=== PATIENT | male | born 1950 | race Caucasian/White ===

== ENCOUNTER 2016-12-14 13:45 | Inpatient (IN) | payer BC ==
[~2016-12-14] VITALS: Ht 180.3 cm; Wt 84.1 kg
[~2016-12-14 13:45] MED LIST: ADDERALL10 MG PO; ADVAIR HFA120 INHALA IH; ASPIR 8181 M1 PO; ASPIRIN EC325 MG PO; AUGMENTIN875 MG PO; BACTRIM,SEPT1 TABLE1 PO; CHLORDIAZEPOXID25 MG PO; CIPRO500 MG PO; COLACE100 MG PO; DIAZEPAM10 MG PO; DICYCLOMINE HCL10 MG PO; DILAUDID2 MG PO; ENDOCET 5-3251 EACH PO; FLAGYL500 MG PO; FLOMAX0.4 MG PO; FOLIC ACID1 MG PO; IBUPROFEN400 MG PO; IBUPROFEN800 MG PO; KEFLEX500 MG PO; LIBRIUM25 MG PO; LIPITOR40 MG PO; LOPRESSOR50 MG PO; Librium PO; Lopressor PO; METHYLPHENIDATE27 MG PO; METOPROLOL TART25 MG PO; METRONIDAZOLE500 MG PO; MIRALAX17 GM PO; MOTRIN600 MG PO; NICOTINE PATCH1 EACH TD; NO HOME MED; OMEPRAZOLE40 M1 PO; OXYCODONE HCL10 MG PO; PANTOPRAZOLE SO40 MG PO; PERCOCET 5/31 TABLET PO; PRAVASTATIN SOD80 MG PO; PRILOSEC40 MG PO; ROXICODONE5 MG PO; SERTRALINE HCL50 MG PO; TAB-A-VITE WIT1 EACH PO; TAB-A-VITE1 EACH PO; TAMSULOSIN HCL0.4 MG PO; THIAMINE HCL100 MG PO; ULTRAM50 MG PO; VENTOLIN HFA18 GM IH; VIAGRA100 MG PO; VIAGRA50 MG PO; ZOFRAN ODT4 MG PO; ZOFRAN4 MG PO; Zoloft PO
[2016-12-14 14:16] LABS: EOSINOPHIL (%) 0.3 % (0-5); HEMATOCRIT 43.8 % (38.0-50.0); IMMATURE GRANULOCYTE (%) 0.6 % (0.0-0.7); INSTRUMENT ABS NEUTROPHIL CT 2.2 K/uL; LYMPHOCYTE COUNT 0.7 K/uL (1.0-2.8); MCHC 34.7 G/DL (30.0-36.0); MCV 95.2 FL (86-99); MEAN PLAT.VOLUME 8.4 uM^3 (9.0-12.4); MONOCYTE (%) 9.9 % (3-12); MONOCYTE COUNT 0.3 K/uL (0-0.8); NEUTROPHIL (%) 66.6 % (45-76); NEUTROPHIL COUNT 2.2 K/uL (1.8-6.4); PLATELET COUNT 87 K/uL (156-360); RBC DIS.WIDTH-CV 14.8 % (11.8-14.6); RBC DIS.WIDTH-SD 51.6 % (39-53); WHITE BLOOD COUNT 3.3 K/uL (4.1-10.2)
[2016-12-14 14:26] LABS: CHLORIDE 100 mEq/L (99-109); POTASSIUM 4.1 mEq/L (3.7-5.4); SODIUM 143 mEq/L (136-147)
[2016-12-14 14:27] LABS: MAGNESIUM 2.2 mg/dL (1.3-2.7)
[2016-12-14 14:29] LABS: GLUCOSE 82 mg/dL (70-99)
[2016-12-14 14:31] LABS: TOTAL BILIRUBIN 1.5 mg/dL (0.0-1.0)
[2016-12-14 14:32] LABS: ALKALINE PHOSPHATASE 93 IU/L (3-129)
[2016-12-14 14:33] LABS: GFR ESTIMATE (CALCULATED) > 59 mL/min/
[2016-12-14 14:34] LABS: UREA NITROGEN (BUN) 13 mg/dL (9-23)
[2016-12-14 14:38] LABS: TROP-I INTERPRETATION NEGATIVE; TROPONIN-I < 0.01 ng/mL (0.0-0.30)
[2016-12-14 14:44] LABS: ANION GAP 29 MEQ/L (2-14)
[2016-12-14] MEDS ORDERED: LO-DOSE ASPIRIN81 M2 PO (16:32)
[2016-12-14 18:40] LABS: CHLORIDE 100 mEq/L (99-109); SODIUM 142 mEq/L (136-147)
[2016-12-14 18:41] LABS: GLUCOSE 101 mg/dL (70-99)
[2016-12-14 18:43] LABS: ANION GAP 25 MEQ/L (2-14)
[2016-12-14 18:45] LABS: GFR ESTIMATE (CALCULATED) > 59 mL/min/
[2016-12-14 18:46] LABS: UREA NITROGEN (BUN) 13 mg/dL (9-23)
[2016-12-14 19:05] VITALS: BP 129/75; BP 132/74; BP 142/91
[2016-12-14 19:17] VITALS: BP 158/98
[2016-12-14 20:38] LABS: TROP-I INTERPRETATION NEGATIVE; TROPONIN-I 0.02 ng/mL (0.0-0.30)
[2016-12-15] VITALS (7 sets, daily range): BP systolic 127–155; BP diastolic 82–106
[2016-12-15 02:47] LABS: TROP-I INTERPRETATION NEGATIVE; TROPONIN-I < 0.01 ng/mL (0.0-0.30)
[2016-12-15 05:40] LABS: EOSINOPHIL (%) 0.8 % (0-5); HEMATOCRIT 39.1 % (38.0-50.0); IMMATURE GRANULOCYTE (%) 0.8 % (0.0-0.7); INSTRUMENT ABS NEUTROPHIL CT 1.6 K/uL; LYMPHOCYTE COUNT 0.7 K/uL (1.0-2.8); MCH 33.3 PG (29.0-34.0); MCHC 34.8 G/DL (30.0-36.0); MCV 95.8 FL (86-99); MEAN PLAT.VOLUME 8.9 uM^3 (9.0-12.4); MONOCYTE (%) 12.4 % (3-12); MONOCYTE COUNT 0.3 K/uL (0-0.8); NEUTROPHIL COUNT 1.6 K/uL (1.8-6.4); PLATELET COUNT 69 K/uL (156-360); RBC DIS.WIDTH-CV 14.7 % (11.8-14.6); RED BLOOD COUNT 4.08 M/uL (4.00-5.50); WHITE BLOOD COUNT 2.7 K/uL (4.1-10.2)
[2016-12-15 06:02] LABS: ALKALINE PHOSPHATASE 76 IU/L (3-129); ANION GAP 17 MEQ/L (2-14); CHLORIDE 98 MEQ/L (99-109); DIRECT BILIRUBIN 0.2 mg/dL (0.0-0.3); GFR ESTIMATE (CALCULATED) > 59 mL/min/; GLUCOSE 117 mg/dL (70-99); MAGNESIUM 1.7 mg/dl (1.3-2.7); POTASSIUM 3.8 MEQ/L (3.7-5.4); SAMPLE HEMOLYSIS CHECK 1; SAMPLE ICTERIC CHECK 0; SAMPLE LIPEMIA CHECK 0; SODIUM 139 MEQ/L (136-147); TOTAL BILIRUBIN 1.3 MG/DL (0.0-1.0); UREA NITROGEN (BUN) 9 mg/dL (9-23)
[2016-12-16 03:12] VITALS: BP 136/84
[2016-12-16 09:22] VITALS: BP 132/89
[2016-12-16 11:53] VITALS: BP 160/79
[2016-12-16 16:54] VITALS: BP 178/71
[2016-12-16 19:31] VITALS: BP 133/83
[2016-12-16 23:32] VITALS: BP 130/80
[2016-12-17 08:00] VITALS: BP 134/87
[2016-12-17 12:05] VITALS: BP 142/74
[2016-12-17 14:47] LABS: METH RESISTANT S AUREUS PCR NEGATIVE (NEGATIVE); PROBE CHECK PASS; SPECIMEN PROCESSING CONTROL PASS
[2016-12-17 15:54] VITALS: BP 100/75
[2016-12-17 20:00] VITALS: BP 129/76
[2016-12-18 04:00] VITALS: BP 136/86
[2016-12-18 07:32] VITALS: BP 98/76
[2016-12-18] MEDS ORDERED: B-1100 MG PO (11:33)
[2016-12-18] MEDS ORDERED: FOLIC ACID1 MG PO (11:34)
[2016-12-18] MEDS ORDERED: MULTI-DAY VITA1 EACH PO (11:34)
[2016-12-18] MEDS ORDERED: MOTRIN600 MG PO (11:34)
[2016-12-18 11:50] VITALS: BP 122/81
== END 2016-12-18 15:23 | DRG 897 ==
LOC: EME 13:45 → EDOF 17:14 → ENRESERV 17:15 → 5WEST 19:04
PROVIDERS: Emergency Medicine; Internal Medicine; Physician Assistant
DX: F10.239 Alcohol dependence with withdrawal, unspecified (principal); E86.0 Dehydration; E87.2 Acidosis; E78.5 Hyperlipidemia, unspecified; F17.210 Nicotine dependence, cigarettes, uncomplicated; I10 Essential (primary) hypertension; I25.10 Atherosclerotic heart disease of native coronary artery without angina pectoris; D69.6 Thrombocytopenia, unspecified; J44.9 Chronic obstructive pulmonary disease, unspecified; F32.9 Major depressive disorder, single episode, unspecified; G43.909 Migraine, unspecified, not intractable, without status migrainosus; I71.4 Abdominal aortic aneurysm, without rupture; Z66 Do not resuscitate; Z95.1 Presence of aortocoronary bypass graft; Z79.82 Long term (current) use of aspirin; Z86.718 Personal history of other venous thrombosis and embolism
CPT/HCPCS: 71010; 80048; 80048 91; 80053; 80076; 81003; 83735; 84484; 85025; 87641; 93005; 93306; 97530 GO; 99281; 99285; G0378; J1650; J2060; J2270; J3411; J7030; J7042; J7120

== ENCOUNTER 2017-07-07 05:19 | Emergency (ER) | payer OTHER, BC ==
[~2017-07-07] VITALS: Ht 180.3 cm; Wt 82.2 kg
[~2017-07-07 05:19] MED LIST changes: +B-1100 MG PO; +LO-DOSE ASPIRIN81 M2 PO; +MULTI-DAY VITA1 EACH PO
[2017-07-07] MEDS ORDERED: LIBRIUM25 MG PO (05:51)
[2017-07-07 06:29] VITALS: BP 136/73
== END 2017-07-07 06:30 | disposition home or self-care (01) ==
LOC: EME → EDBD 05:19 → EME 06:30
DX: S20.211A Contusion of right front wall of thorax, initial encounter (principal); F10.10 Alcohol abuse, uncomplicated; S00.01XA Abrasion of scalp, initial encounter; W18.30XA Fall on same level, unspecified, initial encounter; Y92.009 Unspecified place in unspecified non-institutional (private) residence as the place of occurrence of the external cause; J44.9 Chronic obstructive pulmonary disease, unspecified; F17.200 Nicotine dependence, unspecified, uncomplicated; I10 Essential (primary) hypertension; I25.10 Atherosclerotic heart disease of native coronary artery without angina pectoris; E78.5 Hyperlipidemia, unspecified; F32.9 Major depressive disorder, single episode, unspecified; Z95.1 Presence of aortocoronary bypass graft; Z88.5 Allergy status to narcotic agent
CPT/HCPCS: 70450; 71101; 99281; 99284

== ENCOUNTER 2017-07-08 17:23 | Inpatient (IN) | payer OTHER, BC ==
[~2017-07-08] VITALS: Ht 180.3 cm; Wt 81.7 kg
[2017-07-08 18:47] LABS: BASOPHIL (%) 0.9 % (0-1); EOSINOPHIL (%) 0.3 % (0-5); HEMOGLOBIN 14.3 G/DL (12.5-16.6); IMMATURE GRANULOCYTE (%) 0.3 % (0.0-0.7); LYMPHOCYTE (%) 24.3 % (15-42); LYMPHOCYTE COUNT 0.8 K/uL (1.0-2.8); MCH 34.9 PG (29.0-34.0); MCHC 35.8 G/DL (30.0-36.0); MCV 97.6 FL (86-99); MONOCYTE (%) 9.1 % (3-12); MONOCYTE COUNT 0.3 K/uL (0-0.8); NEUTROPHIL (%) 65.1 % (45-76); NEUTROPHIL COUNT 2.2 K/uL (1.8-6.4); PLATELET COUNT 164 K/uL (156-360); RBC DIS.WIDTH-CV 14.9 % (11.8-14.6); RBC DIS.WIDTH-SD 53.3 % (39-53); WHITE BLOOD COUNT 3.4 K/uL (4.1-10.2)
[2017-07-08 18:57] LABS: CHLORIDE 101 mEq/L (99-109); POTASSIUM 3.2 mEq/L (3.7-5.4); SODIUM 143 mEq/L (136-147)
[2017-07-08 18:58] LABS: GLUCOSE 105 mg/dL (70-99)
[2017-07-08 19:00] LABS: AMPHETAMINE NEGATIVE (500 ng/mL); BARBITURATES NEGATIVE (200 ng/mL); BENZODIAZEPINES PRESUMPTIVE POSITIVE (150 ng/mL); BUPRENORPHINE NEGATIVE (10 ng/mL); COCAINE NEGATIVE (150 ng/mL); METHADONE NEGATIVE (200 ng/mL); METHAMPHETAMINE NEGATIVE (500 ng/mL); OPIATES (MORPHINE) NEGATIVE (100 ng/mL); OXYCODONE NEGATIVE (100 ng/mL); PHENCYCLIDINE NEGATIVE (25 ng/mL); PROPOXYPHENE NEGATIVE (300 ng/mL); THC CANNABINOIDS NEGATIVE (50 ng/mL); TRICYCLIC ANTIDEPRESSANTS NEGATIVE (300 ng/mL)
[2017-07-08 19:01] LABS: SERUM ETHYL ALCOHOL 242 mg/dL
[2017-07-08 19:02] LABS: CREATININE 0.7 mg/dL (0.6-1.3); GFR ESTIMATE (CALCULATED) > 59 mL/min/ (58.99-99999)
[2017-07-08 19:04] LABS: UREA NITROGEN (BUN) 5 mg/dL (9-23)
[2017-07-08 19:05] LABS: SALICYLATE < 5.0 MG/DL (15-30)
[2017-07-08 19:06] LABS: ACETAMINOPHEN (TYLENOL) < 10 mcg/mL (10-30)
[2017-07-08 20:06] LABS: BENZODIAZEPINES, URINE SCREEN POSITIVE (200 ng/mL)
[2017-07-09 03:37] LABS: MAGNESIUM 1.7 mg/dL (1.3-2.7)
[2017-07-09 04:44] VITALS: BP 140/85
[2017-07-09 06:19] LABS: HEMATOCRIT 36.9 % (38.0-50.0); HEMOGLOBIN 12.7 G/DL (12.5-16.6); MCH 33.6 PG (29.0-34.0); MCHC 34.4 G/DL (30.0-36.0); MCV 97.6 FL (86-99); PLATELET COUNT 130 K/uL (156-360); RBC DIS.WIDTH-SD 53.5 % (39-53); RED BLOOD COUNT 3.78 M/uL (4.00-5.50); WHITE BLOOD COUNT 4.3 K/uL (4.1-10.2)
[2017-07-09 06:44] LABS: CHLORIDE 99 MEQ/L (99-109); CREATININE 0.6 MG/DL (0.6-1.3); GFR ESTIMATE (CALCULATED) > 59 mL/min/ (58.99-99999); POTASSIUM 3.1 MEQ/L (3.7-5.4); SODIUM 139 MEQ/L (136-147); UREA NITROGEN (BUN) 6 mg/dL (9-23)
[2017-07-09 06:48] LABS: GLUCOSE 206 mg/dL (70-99)
[2017-07-09 07:50] VITALS: BP 142/98
[2017-07-09 11:46] VITALS: BP 157/84
[2017-07-09 16:46] VITALS: BP 126/82
[2017-07-09 19:59] VITALS: BP 141/85
[2017-07-09 23:41] VITALS: BP 147/97
[2017-07-10 04:26] VITALS: BP 129/86
[2017-07-10 06:17] LABS: BASOPHIL (%) 0.9 % (0-1); EOSINOPHIL (%) 1.9 % (0-5); EOSINOPHIL COUNT 0.1 K/uL (0-0.3); HEMATOCRIT 38.9 % (38.0-50.0); IMMATURE GRANULOCYTE (%) 0.3 % (0.0-0.7); LYMPHOCYTE (%) 33.2 % (15-42); LYMPHOCYTE COUNT 1.1 K/uL (1.0-2.8); MCH 33.2 PG (29.0-34.0); MCHC 33.4 G/DL (30.0-36.0); MCV 99.5 FL (86-99); MONOCYTE (%) 9.1 % (3-12); MONOCYTE COUNT 0.3 K/uL (0-0.8); NEUTROPHIL (%) 54.6 % (45-76); NEUTROPHIL COUNT 1.7 K/uL (1.8-6.4); PLATELET COUNT 98 K/uL (156-360); RBC DIS.WIDTH-CV 14.8 % (11.8-14.6); RBC DIS.WIDTH-SD 53.5 % (39-53); RED BLOOD COUNT 3.91 M/uL (4.00-5.50); WHITE BLOOD COUNT 3.2 K/uL (4.1-10.2)
[2017-07-10 06:46] LABS: CHLORIDE 105 MEQ/L (99-109); CREATININE 0.6 MG/DL (0.6-1.3); GFR ESTIMATE (CALCULATED) > 59 mL/min/ (58.99-99999); POTASSIUM 3.6 MEQ/L (3.7-5.4); SODIUM 139 MEQ/L (136-147); UREA NITROGEN (BUN) 8 mg/dL (9-23)
[2017-07-10 06:50] LABS: GLUCOSE 98 mg/dL (70-99)
[2017-07-10 07:19] VITALS: BP 124/90
[2017-07-10 10:56] VITALS: BP 127/83
[2017-07-10 12:38] LABS: FOLIC ACID (FOLATE) 8.8 NG/ML (5.0-22.0)
[2017-07-10 16:16] VITALS: BP 126/90
[2017-07-11] VITALS: BP 178/96
[2017-07-11 01:00] VITALS: BP 134/67
[2017-07-11 06:42] LABS: BASOPHIL (%) 0.7 % (0-1); EOSINOPHIL COUNT 0.1 K/uL (0-0.3); HEMATOCRIT 42.2 % (38.0-50.0); HEMOGLOBIN 14.3 G/DL (12.5-16.6); IMMATURE GRANULOCYTE (%) 0.7 % (0.0-0.7); LYMPHOCYTE (%) 34.4 % (15-42); MCH 33.8 PG (29.0-34.0); MCHC 33.9 G/DL (30.0-36.0); MCV 99.8 FL (86-99); MONOCYTE (%) 9.4 % (3-12); MONOCYTE COUNT 0.3 K/uL (0-0.8); NEUTROPHIL (%) 52.8 % (45-76); NEUTROPHIL COUNT 1.6 K/uL (1.8-6.4); PLATELET COUNT 105 K/uL (156-360); RBC DIS.WIDTH-CV 14.8 % (11.8-14.6); RBC DIS.WIDTH-SD 54.5 % (39-53); RED BLOOD COUNT 4.23 M/uL (4.00-5.50)
[2017-07-11 07:07] LABS: CHLORIDE 103 MEQ/L (99-109); CREATININE 0.7 MG/DL (0.6-1.3); GFR ESTIMATE (CALCULATED) > 59 mL/min/ (58.99-99999); GLUCOSE 106 mg/dL (70-99); POTASSIUM 3.7 MEQ/L (3.7-5.4); SODIUM 137 MEQ/L (136-147); UREA NITROGEN (BUN) 11 mg/dL (9-23)
[2017-07-11 07:09] VITALS: BP 133/59
[2017-07-11 10:52] VITALS: BP 124/79
[2017-07-11 11:52] VITALS: BP 126/75
[2017-07-11] MEDS ORDERED: FOLIC ACID1 MG PO (12:18)
[2017-07-11] MEDS ORDERED: EFFEXOR XR37.5 MG PO (12:18)
[2017-07-11] MEDS ORDERED: Thiamine,Vitamin B1 PO (12:18)
[2017-07-11] MEDS ORDERED: FAMOTIDINE20 MG PO (12:18)
[2017-07-12 00:25] VITALS: BP 112/68
[2017-07-12 07:35] VITALS: BP 104/66
[2017-07-12 14:47] LABS: Heparin Induced Plt Ab Positive (Negative)
[2017-07-12 16:16] VITALS: BP 107/68
[2017-07-12 23:46] VITALS: BP 101/61
[2017-07-13 06:49] LABS: BASOPHIL (%) 0.6 % (0-1); EOSINOPHIL (%) 2.2 % (0-5); EOSINOPHIL COUNT 0.1 K/uL (0-0.3); HEMATOCRIT 40.5 % (38.0-50.0); HEMOGLOBIN 13.6 G/DL (12.5-16.6); IMMATURE GRANULOCYTE (%) 0.3 % (0.0-0.7); LYMPHOCYTE COUNT 1.3 K/uL (1.0-2.8); MCH 34.5 PG (29.0-34.0); MCHC 33.6 G/DL (30.0-36.0); MCV 102.8 FL (86-99); MONOCYTE (%) 16.1 % (3-12); MONOCYTE COUNT 0.6 K/uL (0-0.8); NEUTROPHIL (%) 45.8 % (45-76); NEUTROPHIL COUNT 1.7 K/uL (1.8-6.4); PLATELET COUNT 120 K/uL (156-360); RBC DIS.WIDTH-CV 15.1 % (11.8-14.6); RBC DIS.WIDTH-SD 56.4 % (39-53); RED BLOOD COUNT 3.94 M/uL (4.00-5.50); WHITE BLOOD COUNT 3.6 K/uL (4.1-10.2)
[2017-07-13 07:18] LABS: CHLORIDE 108 MEQ/L (99-109); CREATININE 0.7 MG/DL (0.6-1.3); GFR ESTIMATE (CALCULATED) > 59 mL/min/ (58.99-99999); GLUCOSE 102 mg/dL (70-99); POTASSIUM 4.2 MEQ/L (3.7-5.4); SODIUM 141 MEQ/L (136-147); UREA NITROGEN (BUN) 25 mg/dL (9-23)
[2017-07-13 08:31] VITALS: BP 117/57
[2017-07-14 09:37] LABS: UFH SRA Result Negative (Negative)
== END 2017-07-13 17:40 | disposition home health service (06) | DRG 897 ==
LOC: EME 17:23 → EDOF 07-09 02:20 → 5EAST 07-09 02:20 → ENRESERV 07-09 02:22 → 5EAST 07-09 04:15
PROVIDERS: Emergency Medicine; Hospitalist; Internal Medicine
DX: F10.239 Alcohol dependence with withdrawal, unspecified (principal); R45.851 Suicidal ideations; F10.229 Alcohol dependence with intoxication, unspecified; F41.9 Anxiety disorder, unspecified; Z95.1 Presence of aortocoronary bypass graft; J44.9 Chronic obstructive pulmonary disease, unspecified; Y90.8 Blood alcohol level of 240 mg/100 ml or more; Z96.611 Presence of right artificial shoulder joint; Z96.612 Presence of left artificial shoulder joint; F17.200 Nicotine dependence, unspecified, uncomplicated; E78.5 Hyperlipidemia, unspecified; I25.10 Atherosclerotic heart disease of native coronary artery without angina pectoris; E87.6 Hypokalemia; K70.10 Alcoholic hepatitis without ascites; D69.6 Thrombocytopenia, unspecified; E86.0 Dehydration; F32.9 Major depressive disorder, single episode, unspecified; G62.9 Polyneuropathy, unspecified; I10 Essential (primary) hypertension; K21.9 Gastro-esophageal reflux disease without esophagitis; R29.6 Repeated falls
CPT/HCPCS: 70450; 70551; 71101; 80048; 82607; 82746; 83735; 84999; 85025; 85027; 86022 90; 90839; 97530 GP; 99281; 99284; G0480; J1644; J2060; J3411; J3475; J3480; J7030; J7070; Q0177

== ENCOUNTER 2017-08-06 23:57 | Inpatient (IN) | payer OTHER, BC ==
[~2017-08-06] VITALS: Ht 180.3 cm; Wt 78.5 kg
[~2017-08-06 23:57] MED LIST changes: +EFFEXOR XR37.5 MG PO; +FAMOTIDINE20 MG PO; +Thiamine,Vitamin B1 PO
[2017-08-07 00:51] LABS: HEMATOCRIT 37.9 % (38.0-50.0); HEMOGLOBIN 13.5 G/DL (12.5-16.6); MCH 34.8 PG (29.0-34.0); MCHC 35.6 G/DL (30.0-36.0); RBC DIS.WIDTH-CV 13.9 % (11.8-14.6); RBC DIS.WIDTH-SD 50.1 % (39-53); RED BLOOD COUNT 3.88 M/uL (4.00-5.50); WHITE BLOOD COUNT 5.7 K/uL (4.1-10.2)
[2017-08-07 01:01] LABS: ALBUMIN 3.8 g/dL (3.2-4.8); CHLORIDE 95 mEq/L (99-109); SODIUM 134 mEq/L (136-147)
[2017-08-07 01:03] LABS: GLUCOSE 77 mg/dL (70-99); TOTAL PROTEIN 6.4 g/dL (6.4-8.3)
[2017-08-07 01:05] LABS: TOTAL BILIRUBIN 1.2 mg/dL (0.0-1.0)
[2017-08-07 01:06] LABS: SERUM ETHYL ALCOHOL 390 mg/dL
[2017-08-07 01:07] LABS: ALKALINE PHOSPHATASE 181 IU/L (3-129); CREATININE 0.7 mg/dL (0.6-1.3); GFR ESTIMATE (CALCULATED) > 59 mL/min/ (58.99-99999); TROP-I INTERPRETATION NEGATIVE; TROPONIN-I 0.01 ng/mL (0.0-0.30)
[2017-08-07 01:08] LABS: AST (GOT) 167 IU/L (2-34); UREA NITROGEN (BUN) 8 mg/dL (9-23)
[2017-08-07 01:10] LABS: ALT (GPT) 61 IU/L (3-49); LIPASE 20 U/L (1.0-51.0)
[2017-08-07 01:34] LABS: PLAT.SUFFICIENCY VERY DECREASED
[2017-08-07 01:55] LABS: MCV 97.7 FL (86-99); PLATELET COUNT 65 K/uL (156-360)
[2017-08-07 05:48] LABS: MAGNESIUM 1.9 mg/dL (1.3-2.7)
[2017-08-07 06:18] VITALS: BP 112/73
[2017-08-07 08:00] LABS: POTASSIUM 3.7 MEQ/L (3.7-5.4)
[2017-08-07] MEDS ORDERED: EFFEXOR XR37.5 MG PO (11:16)
[2017-08-07] MEDS ORDERED: VITAMIN B-1100 MG PO (11:17)
[2017-08-07] MEDS ORDERED: FOLIC ACID1 MG PO (11:17)
[2017-08-07] MEDS ORDERED: FAMOTIDINE20 MG PO (11:17)
[2017-08-07 11:20] VITALS: BP 109/66
[2017-08-07 15:15] VITALS: BP 119/72
[2017-08-07 17:08] VITALS: BP 128/79
[2017-08-07 20:54] VITALS: BP 131/73
[2017-08-08] VITALS (7 sets, daily range): BP systolic 104–135; BP diastolic 65–81
[2017-08-08 05:39] LABS: HEMOGLOBIN 12.6 G/DL (12.5-16.6); MCH 34.1 PG (29.0-34.0); MCHC 34.1 G/DL (30.0-36.0); PLATELET COUNT 58 K/uL (156-360); RBC DIS.WIDTH-CV 14.4 % (11.8-14.6); RBC DIS.WIDTH-SD 53.1 % (39-53); WHITE BLOOD COUNT 5.4 K/uL (4.1-10.2)
[2017-08-08 06:14] LABS: ALBUMIN 3.7 G/DL (3.2-4.8); ALKALINE PHOSPHATASE 179 IU/L (3-129); ALT (GPT) 53 IU/L (3-49); AST (GOT) 160 IU/L (2-34); CHLORIDE 99 MEQ/L (99-109); CREATININE 0.5 MG/DL (0.6-1.3); DIRECT BILIRUBIN 0.4 mg/dL (0.0-0.3); GFR ESTIMATE (CALCULATED) > 59 mL/min/ (58.99-99999); SODIUM 138 MEQ/L (136-147); TOTAL BILIRUBIN 1.2 MG/DL (0.0-1.0); TOTAL PROTEIN 5.9 G/DL (6.4-8.3); UREA NITROGEN (BUN) 10 mg/dL (9-23)
[2017-08-08 06:24] LABS: GLUCOSE 108 mg/dL (70-99)
[2017-08-09 03:40] VITALS: BP 123/80
[2017-08-09 08:57] VITALS: BP 103/74
[2017-08-09 09:23] LABS: CHLORIDE 106 MEQ/L (99-109); CREATININE 0.6 MG/DL (0.6-1.3); GFR ESTIMATE (CALCULATED) > 59 mL/min/ (58.99-99999); GLUCOSE 108 mg/dL (70-99); SODIUM 140 MEQ/L (136-147); UREA NITROGEN (BUN) 13 mg/dL (9-23)
[2017-08-09 09:37] LABS: POTASSIUM 4.1 MEQ/L (3.7-5.4)
[2017-08-09 11:55] VITALS: BP 100/87
[2017-08-09 17:15] VITALS: BP 103/71
[2017-08-09 19:31] VITALS: BP 108/69
[2017-08-10 00:36] VITALS: BP 119/71
[2017-08-10 04:00] VITALS: BP 105/63
[2017-08-10 05:09] LABS: HEMATOCRIT 38.1 % (38.0-50.0); HEMOGLOBIN 12.6 G/DL (12.5-16.6); MCH 34.1 PG (29.0-34.0); MCHC 33.1 G/DL (30.0-36.0); RBC DIS.WIDTH-CV 14.6 % (11.8-14.6); RBC DIS.WIDTH-SD 55.8 % (39-53); WHITE BLOOD COUNT 3.9 K/uL (4.1-10.2)
[2017-08-10 05:22] LABS: PLATELET COUNT 102 K/uL (156-360)
[2017-08-10 06:04] LABS: ALBUMIN 3.5 G/DL (3.2-4.8); ALKALINE PHOSPHATASE 164 IU/L (3-129); ALT (GPT) 55 IU/L (3-49); AST (GOT) 135 IU/L (2-34); CHLORIDE 108 MEQ/L (99-109); CREATININE 0.7 MG/DL (0.6-1.3); DIRECT BILIRUBIN 0.2 mg/dL (0.0-0.3); GFR ESTIMATE (CALCULATED) > 59 mL/min/ (58.99-99999); GLUCOSE 157 mg/dL (70-99); POTASSIUM 3.5 MEQ/L (3.7-5.4); SODIUM 141 MEQ/L (136-147); TOTAL PROTEIN 6.3 G/DL (6.4-8.3); UREA NITROGEN (BUN) 19 mg/dL (9-23)
[2017-08-10 06:06] LABS: TOTAL BILIRUBIN 0.7 MG/DL (0.0-1.0)
[2017-08-10 08:29] VITALS: BP 112/75
[2017-08-10 11:16] VITALS: BP 112/72
[2017-08-10] MEDS ORDERED: TYLENOL REGULA325 MG PO (15:04)
[2017-08-10] MEDS ORDERED: THERAGRAN1 TABLET PO (15:04)
[2017-08-10] MEDS ORDERED: Thiamine,Vitamin B1 PO (15:12)
[2017-08-10] MEDS ORDERED: FOLIC ACID1 MG PO (15:12)
== END 2017-08-10 17:10 | disposition home health service (06) | DRG 155 ==
LOC: EME 23:57 → 4SOUTH 08-07 04:38 → EDOF 08-07 04:38 → ENRESERV 08-07 04:46 → 4SOUTH 08-07 05:48
PROVIDERS: Emergency Medicine; Hospitalist; Physician Assistant
PROC: HZ2ZZZZ Detoxification Services for Substance Abuse Treatment (ICD-10-PCS; principal; 2017-08-07)
PROC: 0HQ1XZZ Repair Face Skin, External Approach (ICD-10-PCS; principal; 2017-08-07)
DX: S02.2XXA Fracture of nasal bones, initial encounter for closed fracture (principal); F10.239 Alcohol dependence with withdrawal, unspecified; N13.2 Hydronephrosis with renal and ureteral calculous obstruction; F33.9 Major depressive disorder, recurrent, unspecified; W01.0XXA Fall on same level from slipping, tripping and stumbling without subsequent striking against object, initial encounter; F05 Delirium due to known physiological condition; D69.59 Other secondary thrombocytopenia; S01.21XA Laceration without foreign body of nose, initial encounter; S01.111A Laceration without foreign body of right eyelid and periocular area, initial encounter; W01.198A Fall on same level from slipping, tripping and stumbling with subsequent striking against other object, initial encounter; F17.210 Nicotine dependence, cigarettes, uncomplicated; I10 Essential (primary) hypertension; I25.10 Atherosclerotic heart disease of native coronary artery without angina pectoris; J43.9 Emphysema, unspecified; Q67.4 Other congenital deformities of skull, face and jaw; E78.5 Hyperlipidemia, unspecified; E87.6 Hypokalemia; K21.9 Gastro-esophageal reflux disease without esophagitis; K70.10 Alcoholic hepatitis without ascites; K74.60 Unspecified cirrhosis of liver; K76.0 Fatty (change of) liver, not elsewhere classified; M47.816 Spondylosis without myelopathy or radiculopathy, lumbar region; Y90.8 Blood alcohol level of 240 mg/100 ml or more; Z96.619 Presence of unspecified artificial shoulder joint; S01.81XA Laceration without foreign body of other part of head, initial encounter; G58.9 Mononeuropathy, unspecified; R29.6 Repeated falls; I95.9 Hypotension, unspecified; R15.9 Full incontinence of feces; R90.82 White matter disease, unspecified; Y92.039 Unspecified place in apartment as the place of occurrence of the external cause; Z79.82 Long term (current) use of aspirin; Z95.1 Presence of aortocoronary bypass graft
CPT/HCPCS: 70450; 70486; 71045; 71260; 72125; 72148; 72195; 73030; 80048; 80053; 80076; 83690; 83735; 84132 91; 84484; 85027; 87641; 93005; 94799; 97530 GP; 99281; 99285; G0378; G0480; G8978 GP CJ; G8979 GP CI; J2060; J3475; J3480; J7030

== ENCOUNTER 2017-08-12 12:35 | Emergency (ER) | payer OTHER, BC ==
[~2017-08-12] VITALS: Ht 180.3 cm; Wt 72.7 kg
[~2017-08-12 12:35] MED LIST changes: +THERAGRAN1 TABLET PO; +TYLENOL REGULA325 MG PO; +VITAMIN B-1100 MG PO
[2017-08-12 13:32] LABS: HEMATOCRIT 43.5 % (38.0-50.0); HEMOGLOBIN 14.8 G/DL (12.5-16.6); MCH 35.1 PG (29.0-34.0); MCV 103.1 FL (86-99); PLATELET COUNT 184 K/uL (156-360); RBC DIS.WIDTH-CV 14.4 % (11.8-14.6); RBC DIS.WIDTH-SD 55.7 % (39-53); RED BLOOD COUNT 4.22 M/uL (4.00-5.50); WHITE BLOOD COUNT 3.4 K/uL (4.1-10.2)
[2017-08-12 13:40] LABS: SODIUM 140 mEq/L (136-147)
[2017-08-12 13:41] LABS: CHLORIDE 107 mEq/L (99-109)
[2017-08-12 13:43] LABS: GLUCOSE 81 mg/dL (70-99)
[2017-08-12 13:45] LABS: CREATININE 0.8 mg/dL (0.6-1.3); GFR ESTIMATE (CALCULATED) > 59 mL/min/ (58.99-99999); SERUM ETHYL ALCOHOL 170 mg/dL
[2017-08-12 13:46] LABS: UREA NITROGEN (BUN) 12 mg/dL (9-23)
[2017-08-12 14:15] LABS: AMPHETAMINE NEGATIVE (500 ng/mL); BARBITURATES NEGATIVE (200 ng/mL); BENZODIAZEPINES PRESUMPTIVE POSITIVE (150 ng/mL); BUPRENORPHINE NEGATIVE (10 ng/mL); COCAINE NEGATIVE (150 ng/mL); METHADONE NEGATIVE (200 ng/mL); METHAMPHETAMINE NEGATIVE (500 ng/mL); OPIATES (MORPHINE) NEGATIVE (100 ng/mL); OXYCODONE NEGATIVE (100 ng/mL); PHENCYCLIDINE NEGATIVE (25 ng/mL); PROPOXYPHENE NEGATIVE (300 ng/mL); THC CANNABINOIDS NEGATIVE (50 ng/mL); TRICYCLIC ANTIDEPRESSANTS NEGATIVE (300 ng/mL)
[2017-08-12 15:06] LABS: BENZODIAZEPINES, URINE SCREEN POSITIVE (200 ng/mL)
[2017-08-12] MEDS ORDERED: ONE DAILY1 EAC3 PO (18:53)
[2017-08-12] MEDS ORDERED: FOLIC ACID1 MG PO (18:53)
[2017-08-12] MEDS ORDERED: EFFEXOR XR37.5 MG PO (18:54)
[2017-08-12] MEDS ORDERED: VITAMIN B-1100 MG PO (18:54)
[2017-08-13 01:55] LABS: APPEARANCE CLEAR ((CLEAR)); BILIRUBIN NEGATIVE; BLOOD SMALL; COLOR YELLOW ((YELLOW)); GLUCOSE (STRIP) NEGATIVE; KETONES NEGATIVE; LEUKOCYTES NEGATIVE; NITRITE NEGATIVE; PROTEIN (STRIP) NEGATIVE; UROBILINOGEN 0.2 MG/DL (0.2-1.0)
[2017-08-13 01:57] LABS: BACTERIA RARE /HPF; EPITHELIAL CELLS RARE /HPF; MUCUS TRACE /LPF; RED BLOOD CELLS 0-5 /HPF (0-5); UCUL ADDED? NO; WHITE BLOOD CELLS 0-5 /HPF (0-5)
[2017-08-13 07:27] VITALS: BP 111/78
== END 2017-08-13 07:31 ==
LOC: EME 12:35
PROVIDERS: Emergency Medicine
DX: R45.851 Suicidal ideations (principal); F10.129 Alcohol abuse with intoxication, unspecified; F32.9 Major depressive disorder, single episode, unspecified; Z91.81 History of falling; Z59.0 Homelessness; Z95.1 Presence of aortocoronary bypass graft; F17.200 Nicotine dependence, unspecified, uncomplicated; Y90.6 Blood alcohol level of 120-199 mg/100 ml
CPT/HCPCS: 70450; 80048; 81003; 84999; 85027; 90837; 99281; 99285; G0480